=== PATIENT | female | born 1970 | race African-American/Black ===

== ENCOUNTER 2023-05-01 09:44 | Emergency (ER) | payer MEDICAID ==
[~2023-05-01] VITALS: Ht 157.5 cm; Wt 52.2 kg
[2023-05-01] MEDS ORDERED: POLY10DR RIGHTEYE ×3 (10:19→10:20)
[2023-05-01 10:40] VITALS: BP 112/89
== END 2023-05-01 11:04 | disposition home or self-care (01) ==
LOC: ER 09:59
DX: H10.9 Unspecified conjunctivitis (principal); J00 Acute nasopharyngitis [common cold]; J45.909 Unspecified asthma, uncomplicated; Z98.890 Other specified postprocedural states
CPT/HCPCS: 99283